=== PATIENT | male | born 1985 | race Caucasian/White ===

== ENCOUNTER 2017-07-28 10:14 | Emergency (ER) | payer SELFPAY ==
[~2017-07-28] VITALS: Ht 185.4 cm; Wt 163.3 kg
[~2017-07-28 10:14] MED LIST: ANAPROX DS550 MG PO; FLEXERIL10 MG PO; PHENERGAN W/DM120 ML PO; PREDNICOT10 MG PO; PROAIR HFA0.09 MG/AC INH; TRAMADOL HCL50 MG PO
[2017-07-28] MEDS ORDERED: NAPROSYN500 MG PO (10:31)
[2017-07-28] MEDS ORDERED: INDOMETHACIN50 MG PO (11:19)
== END 2017-07-28 12:56 | disposition home or self-care (01) ==
LOC: ED 10:14
DX: M10.071 Idiopathic gout, right ankle and foot (principal); R03.0 Elevated blood-pressure reading, without diagnosis of hypertension